=== PATIENT | female | born 1955 | race Hispanic/Latino ===

== ENCOUNTER → 2023-12-18 | Outpatient (REF) | payer MEDICARE ==
[~2023-12-18] MED LIST: AMOX TR-K CLV1 EAC2 PO; DOXYCYCLINE HY100 MG PO; POTASSIUM CHLO20 ME1 PO
== END ==
LOC: CT 15:03
PROVIDERS: ATTEND Internal Medicine
DX: Z87.01 Personal history of pneumonia (recurrent) (principal)
CPT/HCPCS: 71250